=== PATIENT | male | born 1940 | race American Indian/Alaskan Native ===

== ENCOUNTER 2019-01-19 09:06 | Emergency (ER) | payer MEDICARE, OTHER ==
[2019-01-19 09:06] VITALS: BMI 32.5
--- NOTE | 2019-01-19 10:01 | C.PDOC ---
History Of Present Illness 78 year old male presents to the emergency department from snf with complaints of penile pain. Patient states that his conley catheter got caught in his wheelchair and pulled out. Patient states that his nurses went to change his diaper and found blood and a displaced catheter. Patient denies nausea, vomiting, abdominal pain, and states that his penis hurts "a little bit". Time Seen by Provider: 01/19/19 09:10 Chief Complaint (Nursing): Male Genitourinary History Per: Patient History/Exam Limitations: no limitations Onset/Duration Of Symptoms: Hrs Current Symptoms Are (Timing): Still Present Quality Of Discomfort: "Pain" Associated Symptoms: denies: Fever, Chills, Nausea, Vomiting, Diarrhea, Urinary Symptoms Past Medical History Reviewed: Historical Data, Nursing Documentation, Vital Signs Primary Care Provider: Aman Cavazos - Medical History PMH: Anemia (BLOOD TRANSFUSION 1986), Arthritis, Cardia Arrhythmia, CHF, COPD, HTN, Hypercholesterolemia (HLD), Peripheral Edema, Pneumonia, Chronic Kidney Disease Denies: Diabetes, Deep Vein Thrombosis, Hepatitis, HIV, Seizures, Sexually Transmitted Disease Surgical History: No Surg Hx Denies: Pacemaker - [facility] Procedures BATHING/SHOWERING TECHNIQUES TREATMENT (10/11/17) CHANGE DRAINAGE DEVICE IN BLADDER, EXTERNAL APPROACH (01/02/19) CONTRAST RENAL ARTERIOGR (06/08/05) CORONAR ARTERIOGR-2 CATH (12/10/14) DEBRIDEMENT OF NAIL, NAIL BED OR NAIL FOLD (12/13/14) DRAINAGE OF BLADDER WITH DRAINAGE DEVICE, VIA OPENING (11/12/18) DRAINAGE OF R LOW EXTREM WITH DRAIN DEV, PERC APPROACH (09/05/18) DRAINAGE OF RIGHT PLEURAL CAVITY, PERC APPROACH, DIAGN (10/16/18) DRESSING TECHNIQUES TREATMENT (10/11/17) EXCIS DEBRIDE OF WOUND, INFECT, OR BURN (01/26/04) EXTRACTION OF R FOOT SUBCU/FASCIA, PERC APPROACH (09/13/17) GAIT TRAINING/AMBULAT TREATMENT USING ASSIST EQUIPMENT (09/08/18) GROOMING/PERSONAL HYGIENE TREATMENT (10/11/17) HOME MANAGEMENT TREATMENT USING ASSIST EQUIPMENT (09/08/18) INJECT ANTICOAGULANT (12/10/14) INJECT/INFUSE NEC (10/09/13) INSERTION OF INFUSION DEV INTO SUP VENA CAVA, PERC APPROACH (05/24/17) INTRODUCE OF OTH THERAP SUBST INTO RESP TRACT, VIA OPENING (01/02/19) INTRODUCE OF OXAZOLIDINONES INTO PERIPH VEIN, PERC APPROACH (10/06/17) LEFT HEART CARDIAC CATH (12/10/14) LT HEART ANGIOCARDIOGRAM (12/10/14) OCCUPATIONAL THERAPY (12/13/14) PHYSICAL THERAPY NEC (12/13/14) SKIN & SUBQ BIOPSY (01/10/07) TETANUS TOXOID ADMINIST (12/30/04) THERAPEUTIC EXERCISE TREATMENT OF MUSCULOSK WHOLE (10/20/17) TRANSFUSE NONAUT RED BLOOD CELLS IN PERIPH VEIN, PERC (10/17/17) Family History: States: No Known Family Hx - Social History Hx Tobacco Use: No Hx Alcohol Use: No Hx Substance Use: No - Immunization History Hx Tetanus Toxoid Vaccination: No Hx Influenza Vaccination: No Hx Pneumococcal Vaccination: No Review Of Systems Except As Marked, All Systems Reviewed And Found Negative. Constitutional: Negative for: Fever, Chills Cardiovascular: Negative for: Chest Pain Respiratory: Negative for: Cough, Shortness of Breath Gastrointestinal: Negative for: Nausea, Vomiting, Abdominal Pain, Diarrhea Genitourinary: Positive for: Penile Pain. Negative for: Dysuria Physical Exam - Physical Exam Appears: Non-toxic, No Acute Distress Skin: Normal Color, Warm, Dry Head: Atraumatic, Normacephalic Eye(s): bilateral: Normal Inspection, PERRL, EOMI Neck: Normal, Supple Chest: Symmetrical, No Tenderness Cardiovascular: Rhythm Regular, No Murmur Respiratory: Normal Breath Sounds, No Rales, No Rhonchi, No Wheezing Gastrointestinal/Abdominal: Soft, No Tenderness, No Guarding, No Rebound, Other (obese) Male Genital: Other (blood in the meatus) Neurological/Psych: Oriented x3, Normal Speech, Normal Cognition Medical Decision Making Medical Decision Making: Plan: Conley catheterization Dr. Carrasco is in the ED and has evaluated the patient. Disposition Counseled Patient/Family Regarding: Diagnosis, Need For Followup - Disposition Referrals: Aman Cavazos MD [Staff Provider] - Pedrito Carrasco MD [Staff Provider] - Disposition: HOME/ ROUTINE Disposition Time: 13:03 Condition: IMPROVED Instructions: How to Care for Your Conley Catheter, Male Forms: [facility] [employer] (Beninese) - Clinical Impression Clinical Impression: Conley catheter in place - Scribe Statement The provider has reviewed the documentation as recorded by the Scribe (Murary Clement) Provider Attestation: All medical record entries made by the Scribe were at my direction and personally dictated by me. I have reviewed the chart and agree that the record accurately reflects my personal performance of the history, physical exam, medical decision making, and the department course for this patient. I have also personally directed, reviewed, and agree with the discharge instructions and disposition.
[2019-01-19 11:58] VITALS: RESP 18; TEMP 98.2
[2019-01-19 15:08] VITALS: BP 130/69; PULSE 60; O2SAT 96
== END 2019-01-19 15:52 | disposition home or self-care (01) ==
LOC: C.ER 09:06
DX: Z46.6 Encounter for fitting and adjustment of urinary device (principal)